=== PATIENT | female | born 1955 | race Caucasian/White ===

== ENCOUNTER 2019-06-21 20:32 | Emergency (ER) | payer MEDICARE, OTHER, SELFPAY ==
--- NOTE | ~2019-06-21 | XR_ITS ---
EXAMINATION: XR chest 2V DATE: 06/21/2019 21:20 INDICATION: Cough and lower bilateral chest pain TECHNIQUE: PA and lateral views of the chest were obtained. COMPARISON: Chest radiograph dated 11/08/2014 FINDINGS: The lungs remain clear with no focal airspace opacities, pulmonary edema, pleural effusion or pneumot horax. The cardiomediastinal silhouette is normal. Post cystectomy clips in right upper quadrant. IMPRESSION: 1. No acute cardiopulmonary disease. Reviewed, dictated and finalized at location A. BRAKES INSPECTOR
[2019-06-21 20:54] VITALS: BP 133/88; PULSE 105; RESP 22; TEMP 35.9; O2SAT 100
[2019-06-21 23:00] VITALS: BP 106/88; PULSE 93; RESP 12; TEMP 36.7; O2SAT 100
--- NOTE | 2019-06-21 23:25 | ED.URI ---
HPI - URI/Sore Throat General Chief Complaint: Upper Respiratory Infection Stated Complaint: UTI, INFLUENZA A Time Seen by Provider: 06/21/19 23:39 Source: patient Mode of arrival: ambulatory Limitations: no limitations History of Present Illness HPI Narrative: A 63 y/o female presents to the ED with c/o UTI and Influenza A. She states that she was seen at an urgent care today and diagnosed with a UTI and Influenza A. Pt notes that she was sent to the ED to get a chest X-Ray. She reports cough and hematuria, but denies CP, dysuria, and SOB. She has been on ciprofloxacin for recurrent UTI's. Pt adds that she has back pain due to a recent spinal RFA procedure. Patient denies any chest pain. MD elicited complaint: other (UTI and Influenza A) Onset (ago): hour(s) (Today) Associated symptoms: cough and other (Hematuria) Treatments prior to arrival: antibiotics (Ciprofloxacin) Related Data Allergies Allergy/AdvReac Type Severity Reaction Status Date / Time aspirin Allergy Unknown ACTIVATES Verified 11/28/17 08:31 ASTHMA SYMTOMS erythromycin base Allergy Unknown Unknown Verified 06/21/19 23:49 Review of Systems Review of Systems: Narrative: CONSTITUTIONAL: Reports fever, denies chills ENT: Congestion, denies sore throat or otalgia CARDIOVASCULAR: Denies chest pain, palpitations, or edema. RESPIRATORY: Denies dyspnea. Reports cough. GASTROINTESTINAL: Denies abdominal pain, nausea, vomiting, or diarrhea. GENITOURINARY: Denies dysuria. Reports hematuria. SKIN: Denies rash or itching. MUSCULOSKELETAL: Denies back pain, joint pain, or myalgia. Denies flank pain. NEUROLOGIC: Denies headache, numbness, or weakness. All systems reviewed & are unremarkable except as noted in HPI and below PMFSH Past Medical History Medical History Anxiety Asthma Back pain Depression Diabetes Fibromyalgia GERD (gastroesophageal reflux disease) HLD (hyperlipidemia) Rheumatoid arthritis UTI (urinary tract infection) Surgical History Surgical History History of hysterectomy Hx of section x2 Hx of cholecystectomy Hx of sinus surgery Social History Social History Smoking status: Never smoker Gender identity (if verbalized by the patient): Female Comments PMHx of spinal RFA. Exam Narrative: Exam Narrative: GENERAL: Well-appearing, well-nourished, and in no acute distress. HEAD: Normocephalic, atraumatic. EYES: PERRLA and EOMI. ENT: Nares clear, no rhinorrhea or epistaxis. Mucous membranes moist. NECK: Supple. CHEST: Course breath sounds throughout. No respiratory distress. HEART: Regular rate and rhythm. No murmur heard. Normal peripheral pulses. ABDOMEN: Soft, nontender, no suprapubic tenderness, nondistended, normal active bowel sounds. No flank pain. EXTREMITIES: Normal range of motion. No edema. SKIN: Warm, dry, no rash. NEURO: No focal deficits. Alert and oriented X3. Course Course Emergency Course: Patient presented for evaluation of cough, wanting to rule out pneumonia given productive cough. Chest x-ray here is clear. Patient is also reporting a longstanding history of urinary tract infections that she follows with Dr. Roldan for. She was reporting dysuria and hematuria. Patient has no flank pain, no fever or vomiting. Nothing to suggest pyelonephritis at this point. Patient requesting to leave the hospital at the time of reassessment, did provide a urinalysis sample so we will follow for culture. Patient then discharged home in stable condition. Vital Signs Vital signs: Vital Signs Temperature 35.9 C L 06/21/19 20:54 Pulse Rate 105 H 06/21/19 20:54 Respiratory Rate 22 H 06/21/19 20:54 Blood Pressure 133/88 06/21/19 20:54 Pulse Oximetry 100 06/21/19 20:54 Temperature 36.7 C 06/21/19 23:00 Pulse Rate 93 06/21/19 23:00 Respiratory Rate 12 02
[2019-06-22 00:42] VITALS: BP 128/87; PULSE 78; RESP 19; O2SAT 97
[2019-06-22 01:08] LABS: Add Urine Microscopic? YES; Appearance Urine Clear (Clear); Bacteria Urine Trace /hpf; Bilirubin Urine Negative (Negative); Blood Urine Negative (Negative); Color Urine Yellow (Yellow); Glucose Urine UA Negative (Negative); Ketones Urine Negative (Negative); Leukocyte Esterase Ur Trace LEU/UL (Negative); Nitrate Urine Negative (Negative); Protein Urine Negative (Negative); RBC Urine 0-2 /hpf (0-2); Specific Grav Ur 1.012 (1.001-1.035); Squamous Epithelial Cell Urine Few /hpf (Few); Urobilinogen Urine Negative mg/dL (<2.0)
== END 2019-06-22 00:43 | disposition home or self-care (01) ==
PROVIDERS: Emergency Provider Emergency Medicine; PCP Family Medicine
DX: J10.1 Influenza due to other identified influenza virus with other respiratory manifestations (principal); N30.00 Acute cystitis without hematuria; J45.909 Unspecified asthma, uncomplicated; E11.9 Type 2 diabetes mellitus without complications; M79.7 Fibromyalgia; K21.9 Gastro-esophageal reflux disease without esophagitis; E78.5 Hyperlipidemia, unspecified; M06.9 Rheumatoid arthritis, unspecified
CPT/HCPCS: 71046; 81001; 99283

== ENCOUNTER 2020-04-18 21:30 | Emergency (ER) | payer MEDICARE, OTHER, SELFPAY ==
--- NOTE | ~2020-04-18 | XR_ITS ---
XR hip LT 2V w AP pelvis 04/18/2020 21:53 Indication: Left hip pain after fall Procedure: 3 views left hip Comparison: No prior studies for comparison. Findings: There are oblique lucencies in the left femoral neck. Sacral foramen are symmetric. Pelvic rings are intact. Impression: 1: Oblique lucencies left femoral neck, nonspecific. Recommend correlation with CT to exclude fractur e. Reviewed, dictated and finalized at location A. ESTATE VALUER Impression: 1: Oblique lucencies left femoral neck, nonspecific. Recommend correlation with CT to exclude fracture.
--- NOTE | ~2020-04-18 | XR_ITS ---
[[id number] ] INDICATION: Left rib pain TECHNIQUE: Frontal projection of the upper left ribs, frontal projection of the lower left ribs, obli que projection of all the left ribs, frontal inspiratory chest x-ray for interpretation. FINDINGS: There are no displaced rib fractures identified. There are no soft tissue abnormality see n. The lungs are clear. IMPRESSION: 1:No displaced rib fractures. Reviewed, dictated and finalized at location A. OR ANDROID DEVELOPER
--- NOTE | 2020-04-18 21:23 | ED.FALL ---
HPI - Fall General Chief Complaint: Fall Stated Complaint: fall History of Present Illness HPI Narrative: 64 yo female w/ h/o fibromyalgia presnets to the ED after a fall. She reports that she was carrying a package when she lost her balance and fall onto the box. The box pushed into her left chest wall. She reports that she has severe pain. Worse with breathing and moving. She also has some pain in the rleft hip. She has not tried to ambulate. Related Data Allergies Allergy/AdvReac Type Severity Reaction Status Date / Time aspirin Allergy Unknown ACTIVATES Verified 04/19/20 14:27 ASTHMA SYMTOMS erythromycin base Allergy Unknown Unknown Verified 04/19/20 14:27 Review of Systems Review of Systems: All systems reviewed & are unremarkable except as noted in HPI and below Constitutional: Constitutional: Denies fever(s) and Denies weakness Eyes: Eyes: Denies change in vision Cardiovascular: Cardiovascular: Reports chest pain Respiratory: Respiratory: Reports dyspnea Gastrointestinal: Gastrointestinal: Denies abdominal pain, Denies nausea and Denies vomiting Musculoskeletal: Musculoskeletal: Reports back pain Neurologic: Denies dizziness and Denies weakness PMFSH Past Medical History Medical History Anxiety Asthma Back pain Depression Diabetes Fibromyalgia GERD (gastroesophageal reflux disease) HLD (hyperlipidemia) Rheumatoid arthritis UTI (urinary tract infection) Surgical History Surgical History History of hysterectomy Hx of section x2 Hx of cholecystectomy Hx of sinus surgery Social History Social History Smoking status: Never smoker Gender identity (if verbalized by the patient): Female Exam Const: General: no acute distress and alert Nutritional Appearance: well nourished Orientation/consciousness: patient oriented x3 HENMT: Head: normal to inspection, no contusions and no lacerations Eyes: Conjunctivae: conjunctivae normal Pupils: Equal, round and reactive pupils present EOM: EOMs intact bilaterally Chest: Chest palpation & inspection: tenderness rib (left lateral) Resp: Auscultation: clear to auscultation bilaterally Other: shallow breathing Cardio: Rate: regular rate Rhythm: regular rhythm Skin: General skin exam: normal color Neuro: General: patient oriented x3, moves all extremities, no focal motor deficits and CN's II-XI intact bilaterally Speech: normal speech Extrem: Other: left hip tenderness Course Vital Signs Vital signs: Vital Signs Temperature 37.0 C 04/18/20 21:24 Pulse Rate 88 04/18/20 21:24 Respiratory Rate 20 04/18/20 21:24 Blood Pressure 122/73 04/18/20 21:24 Pulse Oximetry 100 04/18/20 21:24 Temperature 36.9 C 04/18/20 21:30 Pulse Rate 92 04/18/20 23:15 Respiratory Rate 12 04/18/20 23:15 Blood Pressure 110/54 L 04/18/20 23:15 Pulse Oximetry 97 04/18/20 23:15 MDM - Fall Differential Diagnosis Differential diagnosis: Likely other (Rib fracture, chest wall strain) Medical Records Attestation: I reviewed the patient's medical records. Imaging Data Attestation: I personally reviewed and interpreted this imaging study as follows: My impression: Negative rib and hip x-ray Radiologist's impression: ITS Impressions Ribs w/Chest X-Ray 04/19/20 08:15 IMPRESSION: 1:No displaced rib fractures. Hip/Pelvis X-Ray 04/19/20 08:16 Impression: 1: Oblique lucencies left femoral neck, nonspecific. Recommend correlation with CT to exclude fracture. Discharge Plan Discharge Clinical Impression: Chest wall muscle strain, Contusion of hip, left Patient Disposition: Home, Self-Care Condition: Stable Instructions: Chest Wall Pain (ED) Prescriptions: New hydrocodone-acetaminophen [[place]] 5-325 mg t
[2020-04-18 21:24] VITALS: BP 122/73; PULSE 88; RESP 20; TEMP 37; O2SAT 100
[2020-04-18 21:30] VITALS: BP 147/81; PULSE 91; RESP 20; TEMP 36.9; O2SAT 97
[2020-04-18 22:45] VITALS: BP 106/61; PULSE 88; RESP 12; O2SAT 98
[2020-04-18 23:15] VITALS: BP 110/54; PULSE 92; RESP 12; O2SAT 97
--- NOTE | 2020-04-18 23:33 | PC.NURSE ---
Initial Assessment at 2129 was not correct information for patient Christen Brito. Initial Assessment at 0 on 04/18/2020 was meant for another.
== END 2020-04-18 23:44 | disposition home or self-care (01) ==
PROVIDERS: Emergency Provider Emergency Medicine; PCP Family Medicine
DX: S29.011A Strain of muscle and tendon of front wall of thorax, initial encounter (principal); S70.02XA Contusion of left hip, initial encounter; M79.7 Fibromyalgia; E11.9 Type 2 diabetes mellitus without complications; K21.9 Gastro-esophageal reflux disease without esophagitis; E78.5 Hyperlipidemia, unspecified; M06.9 Rheumatoid arthritis, unspecified; Z87.440 Personal history of urinary (tract) infections; J45.909 Unspecified asthma, uncomplicated
CPT/HCPCS: 71101; 73502; 99284

== ENCOUNTER 2020-04-19 13:19 | Emergency (ER) | payer MEDICARE, OTHER, SELFPAY ==
--- NOTE | ~2020-04-19 | CT_ITS ---
EXAMINATION: CT hip LT wo con DATE: 04/19/2020 14:20 INDICATION: Left hip pain. Lucency seen in the left femoral neck on x-ray. TECHNIQUE: Computed tomography (CT) of the left hip was performed without intravenous contrast. The d ose-length product was 669.16 mGy-cm. Automated exposure control and iterative reconstruction technWindSim ue were employed. COMPARISON: Left hip series dated 04/18/2020 FINDINGS: No acute fracture or traumatic malalignment. No significant joint space narrowing. The pelv ic structures are unremarkable. Visualized intra-abdominal contents is unremarkable. No significant s oft tissue abnormality. No foreign bodies. IMPRESSION: 1. No acute fracture. Reviewed, dictated and finalized at location A. GE ANALYST IMPRESSION: 1. No acute fracture.
[2020-04-19 13:33] VITALS: BP 96/61; PULSE 127; RESP 16; TEMP 35.9; O2SAT 100
--- NOTE | 2020-04-19 14:10 | ED.GENADULT ---
HPI - General Adult General Chief complaint: Fall Stated complaint: call back for ct Time Seen by Provider: 04/19/20 13:31 Source: patient, family and old records reviewed Mode of arrival: ambulatory Limitations: no limitations History of Present Illness HPI narrative: Patient is a 64-year-old female who presents back to emergency department for further evaluation after being diagnosed with rib injury and hip injury from a ground-level fall yesterday patient was contacted and instructed to come back for discrepancy on the hip x-ray patient on arrival continues to have moderate aching to severe pain of the left anterior ribs with moderate aching pain of the left hip patient denies other injuries or complaints currently Related Data Allergies Allergy/AdvReac Type Severity Reaction Status Date / Time aspirin Allergy Unknown ACTIVATES Verified 04/19/20 14:27 ASTHMA SYMTOMS erythromycin base Allergy Unknown Unknown Verified 04/19/20 14:27 Review of Systems Review of Systems: All systems reviewed & are unremarkable except as noted in HPI and below PMFSH Past Medical History Medical History (Updated 04/19/20 @ 14:58 by Fam Chong PA-C) Anxiety Asthma Back pain Depression Diabetes Fibromyalgia GERD (gastroesophageal reflux disease) HLD (hyperlipidemia) Rheumatoid arthritis UTI (urinary tract infection) Surgical History Surgical History History of hysterectomy Hx of section x2 Hx of cholecystectomy Hx of sinus surgery Social History Social History Smoking status: Never smoker Gender identity (if verbalized by the patient): Female Exam Narrative: Exam Narrative: GENERAL: Well-appearing, well-nourished, and in no acute distress. HEAD: Normocephalic, atraumatic. EYES: PERRLA and EOMI. ENT: Nares clear, no rhinorrhea or epistaxis. Mucous membranes moist. NECK: Supple. No adenopathy or masses. CHEST: Clear to auscultation. No respiratory distress. No wheezes rales or rhonchi. Tenderness of the anterior and lateral left-sided ribs HEART: Regular rate and rhythm. No murmur heard. Normal peripheral pulses. ABDOMEN: Soft, nontender, nondistended EXTREMITIES: Normal range of motion. No edema. No midline cervical thoracic or lumbar tenderness. Tenderness left hip SKIN: Warm, dry, no rash. NEURO: No focal deficits. Alert and oriented x3. PSYCH: Normal mood and affect. Course Course Emergency Course: Patient in the room at this time in no distress given medication in the ER evaluated no fracture noted on the hip will have discharge at this time with continued follow-up with primary care. Vital Signs Vital signs: Vital Signs Temperature 96.6 F L 04/19/20 13:33 Pulse Rate 127 H 04/19/20 13:33 Respiratory Rate 16 04/19/20 13:33 Blood Pressure 96/61 L 04/19/20 13:33 Pulse Oximetry 100 04/19/20 13:33 Temperature 96.6 F L 04/19/20 13:33 Pulse Rate 92 04/19/20 14:21 Respiratory Rate 20 04/19/20 14:21 Blood Pressure 106/51 L 04/19/20 14:21 Pulse Oximetry 98 04/19/20 14:21 Medical Decision Making MDM Narrative Medical decision making narrative: Patient evaluated emergency department no fractures noted will be sent home with attentional medicines with continue follow-up with primary care was given incentive spirometer as well Vital Signs Vital Signs: Vital Signs Temperature 96.6 F L 04/19/20 13:33 Pulse Rate 127 H 04/19/20 13:33 Respiratory Rate 16 04/19/20 13:33 Blood Pressure 96/61 L 04/19/20 13:33 Pulse Oximetry 100 04/19/20 13:33 Temperature 96.6 F L 04/19/20 13:33 Pulse Rate 92 04/19/20 14:21 Respiratory Rate 20 04/19/20 14:21 Blood Pressure 106/51 L 04/19/20 14:21 Pulse Oximetry 98 04/19/20 14:21 Lab Data Result diagrams: 04/19/20 14:12 04/19/20 14:12 Labs: Lab Results
[2020-04-19 14:18] LABS: Basophils Percent Auto 0.8 % (0.2-1.2); Eosinophils Absolute Auto 0.2 K/mm3 (0-0.3); Eosinophils Percent Auto 4.7 % (0-4.4); Hematocrit 39.7 % (37.0-47.0); Hemoglobin 12.8 g/dL (12.0-15.0); Immature Granulocyte Absolute 0.02 K/mm3 (0.00-0.031); Immature Granulocyte Percent A 0.4 % (0-0.5); Lymphocytes Absolute Auto 1.29 K/mm3 (0.9-3.2); Lymphocytes Percent Auto 27.4 % (18.3-44.2); Mean Corpuscular HGB Conc 32.2 g/dl (32-36); Mean Corpuscular Hemoglobin 28.1 pg (26-34); Mean Corpuscular Volume 87.3 fl (80-100); Mean Platelet Volume 9.5 fl (7.4-10.4); Monocytes Absolute Auto 0.5 K/mm3 (0.1-0.6); Monocytes Percent Auto 10.4 % (2.6-8.5); Neutrophils Absolute Auto 2.7 K/mm3 (1.3-6.7); Neutrophils Percent Auto 56.3 % (45.5-73.1); Platelet Count Result 167 k/mm3 (150-375); Red Blood Count 4.55 M/mm3 (4.2-5.4); Red Cell Distribution Width 12.8 % (11.5-14.5); White Blood Count 4.7 K/mm3 (4.5-10.0)
[2020-04-19 14:21] VITALS: BP 106/51; PULSE 92; RESP 20; O2SAT 98
[2020-04-19] MEDS: LIDOCAINE 5% PATCH 1 PATCH TRANSDERM (14:27)
[2020-04-19] MEDS: HYDROcodone/acetaminophen (*CRX) 7.5-325 MG TABLET 1 TAB PO (14:27)
[2020-04-19] MEDS: SODIUM CHLORIDE 0.9% IV 500 ML 999 ML IV CONT (14:27)
[2020-04-19 14:31] LABS: Anion Gap 5 mmol/L (8-16); Blood Urea Nitrogen 9 mg/dL (7-17); Calcium 8.8 mg/dL (8.4-10.2); Carbon Dioxide 29 mmol/L (22-30); Chloride 103 mmol/L (98-107); Estimated CRCL calculation 96 ml/min; Estimated Glomerular Filt Rate > 60; Glucose 171 mg/dL (65-105); Sodium 137 mmol/L (137-145)
--- NOTE | 2020-04-19 15:00 | PC.NURSE ---
Attempted to administer toradol for pain control. Pt states she is unable to take aspirin, ibuprofren, or any other nsaids due to her asthma and would not like to receive the toradol. SARATH made aware.
[2020-04-19] MEDS: MORPHINE SULFATE (*CRX) 2 MG/ML INJ IV PUSH (15:13)
[2020-04-19 15:49] VITALS: BP 108/84; PULSE 84; RESP 18; O2SAT 100
== END 2020-04-19 15:55 | disposition home or self-care (01) ==
PROVIDERS: Emergency Medicine Emergency Medical Services; Emergency Provider Emergency Medicine; PCP Family Medicine
DX: S79.912A Unspecified injury of left hip, initial encounter (principal); S29.9XXA Unspecified injury of thorax, initial encounter; M79.7 Fibromyalgia; K21.9 Gastro-esophageal reflux disease without esophagitis; E78.5 Hyperlipidemia, unspecified; M06.9 Rheumatoid arthritis, unspecified; Z87.440 Personal history of urinary (tract) infections; W19.XXXA Unspecified fall, initial encounter
CPT/HCPCS: 36415; 73700; 80048; 85025; 96361; 96374; 99199; A9270; J1885; J2270; J7040

== ENCOUNTER 2023-03-21 09:25 | Emergency (ER) | payer MEDICARE, OTHER, SELFPAY ==
--- NOTE | ~2023-03-21 | XR_ITS ---
Clinical Indication: Cough PA and lateral views of the chest: Comparison: 06/21/2019 Findings: The lungs are clear, without evidence of focal consolidation or pleural effusion. Cardiome diastinal silhouette is within normal limits. Bones and soft tissues are unremarkable. Impression: Normal chest. Reviewed, dictated and finalized at [facility]. WORKER APPRENTICE Impression: Normal chest.
--- NOTE | 2023-03-21 09:34 | ED.URI ---
HPI - URI/Sore Throat General Chief Complaint: Upper Respiratory Infection Stated Complaint: cough Source: patient and RN notes reviewed History of Present Illness HPI Narrative: 67 yo F presents to urgent care with complaints of a productive cough x 10 days. Pt states she did fall on her porch last Monday and has been having right, anterior, rib pain since then. Pt states she was seen after this incident in the ER. Pt denies any fevers or chills. Pt does admit to SOB as well. Denies any abdominal pain, N/V/D. Pt has been taking Mucinex daily with minimal relief. Related Data Home Medications Medication Instructions Recorded Confirmed albuterol sulfate 90 mcg/actuation 2 puff inhalation Q4-6H PRN 03/21/23 03/21/23 aerosol inhaler Shortness Of Breath Or Wheezing budesonide 32 mcg/actuation nasal 2 spray intranasal DAILY 03/21/23 03/21/23 spray calcium carbonate 600 mg-vitamin 1 tablet PO DAILY 03/21/23 03/21/23 D3 20 mcg (800 unit) tablet (Caltrate with Vitamin D3) clobetasol 0.05 % topical cream 1 applic topical BID 03/21/23 03/21/23 cyclosporine 0.05 % eye drops 1 drp EACH EYE Q12H 03/21/23 03/21/23 duloxetine 60 mg capsule,delayed 60 mg PO DAILY 03/21/23 03/21/23 release epinephrine 0.3 mg/0.3 mL 0.3 mg IM Q4H PRN Allergic Reaction 03/21/23 03/21/23 injection, auto-injector esomeprazole magnesium 40 mg 40 mg PO BID 03/21/23 03/21/23 capsule,delayed release fexofenadine 180 mg tablet 180 mg PO DAILY 03/21/23 03/21/23 fluticasone furoate 100 1 inh inhalation DAILY 03/21/23 03/21/23 mcg-vilanterol 25 mcg/dose inhalation powder (Breo Ellipta) fluticasone furoate 50 50 mcg inhalation DAILY 03/21/23 03/21/23 mcg/actuation blister powder for inhalation gabapentin 100 mg capsule 300 mg PO TID 03/21/23 03/21/23 guaifenesin 600 mg tablet, 1,200 mg PO BID 11/07/23 11/07/23 extended release 12 hr (Mucinex) metoprolol succinate 25 mg 25 mg PO DAILY 03/21/23 03/21/23 tablet,extended release 24 hr isvpubzr-ztsv-kdis 8 mg-folic 400 1 tablet PO DAILY 03/21/23 03/21/23 mcg-K 50 mcg-lutein 300 mcg tablet (Centrum Silver Women) pravastatin 20 mg tablet 20 mg PO DAILY 03/21/23 03/21/23 sitagliptin phosphate 50 1 tablet PO BID 03/21/23 03/21/23 mg-metformin 500 mg tablet (Janumet) zafirlukast 10 mg tablet 10 mg PO BID 03/21/23 03/21/23 Allergies Allergy/AdvReac Type Severity Reaction Status Date / Time shellfish derived Allergy Severe Anaphylactic Verified 03/21/23 09:47 Shock aspirin Allergy Unknown ACTIVATES Verified 03/21/23 09:47 ASTHMA SYMPTOMS erythromycin base Allergy Unknown Unknown Verified 03/21/23 09:47 Review of Systems Review of Systems: CONSTITUTIONAL: Denies fever, chills, or sweats. EYES: Denies visual changes, redness, or discharge. ENT: Denies otalgia and sore throat CARDIOVASCULAR: Denies chest pain, palpitations, or edema. RESPIRATORY:cough GASTROINTESTINAL: Denies abdominal pain, nausea, vomiting, or diarrhea. GENITOURINARY: Denies dysuria or hematuria. SKIN: Denies rash or itching. MUSCULOSKELETAL: right anterior, lower, rib pain NEUROLOGIC: Denies headache, numbness, or weakness. Pertinent positives per HPI. [facility] Past Medical History Medical History (Updated 03/21/23 @ 10:10 by Ana Maria Siddiqui, GAGE) Anxiety Asthma Back pain Depression Diabetes Fibromyalgia GERD (gastroesophageal reflux disease) HLD (hyperlipidemia) Rheumatoid arthritis UTI (urinary tract infection) Surgical History Surgical History History of hysterectomy Hx of section x2 Hx of cholecystectomy Hx of sinus surgery Social History Social History Smoking status: Never smoker Gender identity (if verbalized by the patient): Female Comments At the time of my signature, I reviewed and agree with the nursing past medical, surgic
[2023-03-21 09:36] VITALS: BP 103/70; PULSE 100; RESP 18; TEMP 35.6; O2SAT 98
== END 2023-03-21 10:12 | disposition home or self-care (01) ==
PROVIDERS: Emergency Provider Nurse Practitioner Family; PCP Family Medicine
DX: B34.9 Viral infection, unspecified (principal); J45.909 Unspecified asthma, uncomplicated; E11.9 Type 2 diabetes mellitus without complications; M79.7 Fibromyalgia; K21.9 Gastro-esophageal reflux disease without esophagitis; E78.5 Hyperlipidemia, unspecified; M06.9 Rheumatoid arthritis, unspecified
CPT/HCPCS: 71046; 99213; G0463